=== PATIENT | female | born 1945 | race Caucasian/White ===

== ENCOUNTER 2024-03-02 12:18 | Inpatient (IN) ==
--- NOTE | 2024-03-02 12:58 | Emergency Department Note ---
Impression & Plan Weakness, Acute hyperglycemia, Acute UTI, Acute dehydration, Elevated lactic acid level, Hypomagnesemia ED Provider Note NAME: RENU ABLERT AGE: 78 SEX: F : 1945 ARRIVES VIA: Walk-In INFORMANT: [Patient][family] ED PROVIDER(S): [Walter Fisher MD] CHIEF COMPLAINT: Hyperglycemia HISTORY OF PRESENT ILLNESS: The patient is a 78-year-old female who states that 3 days ago, she noticed some blood in her urine, some burning to urinate and some urinary frequency. 2 days ago, she went to her doctor's office and was diagnosed with a UTI. She was placed on Macrobid. Patient states that the burning has improved with urination. Today, her sugar was high and read high on her monitor. She was shaky and weak and tired and she felt like her sugars might be up. She had ketones in her urine. She presents for evaluation. She did take some insulin prior to arrival. There has been no cough or congestion. She has been somewhat nauseated but there has been no vomiting. PMHx/PSHx/Social Hx: See Below PHYSICAL EXAM: GENERAL: Patient is in no acute distress. HEENT: No acute trauma, normocephalic atraumatic, mucous membranes moist, no nasal congestion. Neck: No adenopathy, trachea midline, no stridor. Lungs: Clear to auscultation bilaterally when listening anterior, no wheezing or rhonchi, no respiratory distress. Heart: Regular rate and rhythm, no murmurs. Abdomen: Somewhat obese, mildly diffusely tender, no distention. Soft. NEUROLOGIC: Oriented x 3, no acute motor or sensory deficits, no focal weakness. SKIN: No jaundice, no diaphoresis. DIFFERENTIAL DIAGNOSIS: Sepsis or bacteremia, UTI, dehydration, electrolyte imbalance, medication reaction, among others. EMERGENCY DEPARTMENT PROCEDURES: MEDICAL DECISION MAKING: There is no leukocytosis or concerning anemia. There is a normal platelet count. VBG does not show findings of acidosis--DKA is thus unlikely. No renal failure. Magnesium is low at 1.5. Sugar was high at the mid 300s. Lactic acid level was elevated at over 5, this lactic elevation could be secondary to infection or possibly just dehydration and her hyperglycemia. There was no concerning liver enzyme elevation. Patient appeared to be in a euthyroid state. ECG showed a sinus rhythm, no dysrhythmia or ST elevation. Cardiac enzyme testing x 1 was not consistent with acute cardiac injury. Urinalysis showed 4+ ketones consistent with dehydration, no infection. Chest x-ray showed some potential atelectasis at the left base, no heart failure. On exam, the patient was sleepy and seemed dehydrated. She was not toxic or febrile. She was not hypotensive. The patient received 2 L of IV saline. This would qualify as over 30 cc/kg for sepsis protocol based on her ideal body weight. She received IV ceftriaxone as antibiotic therapy. She received IV insulin for the hyperglycemia, she was given IV magnesium. She received IV Zofran. The patient has been aggressively managed given her findings. Her lactic acidosis is already starting to clear. The value is now in the range of 3. Given the dehydration, given the large amount of ketones in the urine, given her fatigue, the recent UTI and now the lactic acidosis, I do think hospitalization would be warranted. I spoke with the patient and case management, the on-call hospitalist was consulted. I doubt the patient is truly septic. I suspect her lactic acid elevation is actually from her dehydration and hyperglycemia. Prior/Outside records/notes reviewed: None ECG per my interpretation: Indication was possible sepsis. The ECG shows a normal sinus rhythm with a rate of 91. There is no acute ST elevation, no PVCs. The QTc was 430. There was some poor R wave progression. Continuous Cardiac Monitoring per my interpretation: An order was placed for continuous cardiac monitoring. The monitor shows a rate of 97 with normal sinus rhythm. Imaging/x-ray results per my interpretation: Chest x-ray shows potential congestion versus atelectasis at the left base, no CHF. Chronic Medical/Social conditions affecting care: Advanced age. Care/Management discussed with: Case management, the on-call hospitalist. Level of care consideration(s): After review of the information above and other included data: --I believe the patient requires escalation of care to admission Critical Care Note: I have personally spent 39 minutes of critical care time in the direct management of this patient. This includes bedside care, interpretation of diagnostic studies, and testing, discussion with consultants, patient, and family members, and other required patient management activities. This 39 minutes is in excess of all separately billable procedures. DISPOSITION: Admission Past Med/Surg History Problem List (Updated 03/02/24 @ 17:36 by Walter Fisher MD) Hypomagnesemia (Acute) Elevated lactic acid level (Acute) Acute dehydration (Acute) Acute UTI (Acute) Acute hyperglycemia (Acute) Weakness (Acute) UTI (urinary tract infection) Back pain Urinary incontinence Vitamin B12 deficiency Vitamin D deficiency EKG abnormalities Left knee pain Strain of peroneal tendon of right foot Gait difficulty Health care maintenance Dyslipidemia Hypertension Hypothyroidism Uncontrolled type 2 diabetes mellitus, with long-term current use of insulin Medical History Heart rate fast Right ankle sprain Hyperlipidemia Acquired hypothyroidism Benign hypertension Uncontrolled type 2 diabetes mellitus with hyperglycemia Surgical History History of appendectomy Family History Mother Breast cancer Denies family history of Ovarian cancer Prostate cancer Myocardial infarction Colorectal cancer Social History Smoking Status: Never smoker Hx Alcohol Use: No Hx Substance Use: No Preferred Language: Norwegian Visual Impairment: No Limitations Hearing Ability: Normal marital status: / Current Living Situation Comment: lives with daughter and her spouse current occupational status: retired Feels Safe at Home: Yes Dental Care, Regularly: No Physical Activity Frequency: Does not Exercise Seatbelt Use: always Allergies Allergies Allergy/AdvReac Type Severity Reaction Status Date / Time No Known Allergies Allergy Verified 03/02/24 14:58 Home Meds Home Medications Medication Instructions Recorded Confirmed lancets 33 gauge (BD Ultra Fine #100 ea 08/26/20 02/21/24 Lancets) vitamin B complex 1 cap PO DAILY 08/26/20 03/02/24 potassium gluconate 600 mg (99 mg) 600 mg PO DAILY 09/10/20 03/02/24 tablet cinnamon bark 500 mg capsule 500 mg PO DAILY 02/05/21 03/02/24 (Cinnamon) droogpcc-iph-xklbr acid 0.4 1 tab PO DAILY 02/05/21 03/02/24 mg-lycopene 300 mcg-lutein 250 mcg tablet (Centrum Silver) blood sugar diagnostic (ReliOn #10 ea 03/09/21 02/21/24 Prime Test Strips) flash glucose scanning reader 07/07/21 02/21/24 (FreeStyle Kitty 2 [place]) echinacea 500 mg capsule 500 mg PO DAILY 10/12/22 03/02/24 insulin lispro 100 unit/mL See Rx Instructions .Route .COMPLEX 03/02/24 03/02/24 subcutaneous pen (Humalog KwikPen (U-100) Insulin) metformin 500 mg tablet,extended 500 mg PO BID 03/02/24 03/02/24 release 24 hr Previous Rx's Medication Instructions Recorded aspirin 81 mg chewable tablet 81 mg PO DAILY #30 tabs 05/04/21 cholecalciferol (vitamin D3) 50 50 mcg PO DAILY #90 caps 11/18/22 mcg (2,000 unit) capsule flash glucose sensor (FreeStyle #6 ea 12/09/22 Kitty 2 Sensor kit) pen needle, diabetic 32 gauge x #400 ea 02/28/23" (BD Geraldine 2nd Gen Pen Needle) lisinopril 20 1 tab PO DAILY #90 tabs 04/21/23 mg-hydrochlorothiazide 25 mg tablet insulin glargine 100 unit/mL (3 17 unit (0.17 mL) subcut QAM 90 09/11/23 mL) subcutaneous pen (Basaglar days #15.3 mL KwikPen U-100 Insulin) oxybutynin chloride 5 mg tablet 2.5 mg (1/2 x 5 mg) PO DAILY #15 11/30/23 tabs atorvastatin 40 mg tablet (Lipitor) 40 mg PO QPM #90 tabs 01/02/24 levothyroxine 125 mcg tablet 125 mcg PO DAILY #90 tabs 01/24/24 nitrofurantoin 100 mg PO BID 5 days #10 caps 02/29/24 monohydrate/macrocrystals 100 mg capsule (Macrobid) Results & Data (ED) Vital Signs Vital Signs - 24 hr 03/02/24 12:21 03/02/24 13:33 03/02/24 14:03 Temperature 36.3 C L Temperature Source Temporal Artery Scan Pulse Rate 97 H 88 83 Pulse Rhythm Regular Pulse Strength Normal Respiratory Rate 18 14 Respiratory Effort / Characteristics Non-Labored Respiratory Depth Normal Blood Pressure 148/92 H 127/73 Blood Pressure Mean 110 91 Blood Pressure Position Sitting Pulse Oximetry 94 97 Oxygen Delivery Method Room Air Room Air Sepsis Recent Fever Within 48 Hours No Sepsis New/Unexplained Change in Mental Status N/A Sepsis Action Taken by Nursing No Action Required 03/02/24 14:30 Temperature Temperature Source Pulse Rate 83 Pulse Rhythm Pulse Strength Respiratory Rate 16 Respiratory Effort / Characteristics Respiratory Depth Blood Pressure 115/70 Blood Pressure Mean 85 Blood Pressure Position Pulse Oximetry 98 Oxygen Delivery Method Room Air Sepsis Recent Fever Within 48 Hours Sepsis New/Unexplained Change in Mental Status Sepsis Action Taken by Group Home Medications Current Medication List: was personally reviewed by me Laboratory Data Attestation: I reviewed the patient's lab results. 03/02/24 12:35 03/02/24 12:35 Lab Results 03/02/24 03/02/24 03/02/24 Range/Units 12:24 12:35 13:05 WBC 10.51 (4.8-10.8) K/ul RBC 4.58 (4.20-5.40) M/uL Hgb 13.9 (12.0-16.0) g/dl Hct 40.9 (37.0-47.0) % MCV 89.3 (80.0-100.0) fL MCH 30.3 (25.0-34.0) pg MCHC 34.0 (32.0-36.0) g/dL RDW Std Deviation 44.3 (36.4-46.3) fL RDW Coeff of Isaac 13.6 (11.5-14.5) % Plt Count 282 (130-400) K/uL MPV 8.7 L (9.4-12.4) fL Immature Gran % (Auto) 0.5 % Neut % (Auto) 80.3 % Lymph % (Auto) 12.6 % [place] % (Auto) 4.9 % Eos % (Auto) 1.0 % Baso % (Auto) 0.7 % Neut # (Auto) 8.46 H (1.40-6.50) K/uL Lymph # (Auto) 1.32 (1.20-3.40) K/uL [place] # (Auto) 0.51 (0.11-0.59) K/uL Eos # (Auto) 0.10 (0.00-0.50) K/uL Baso # (Auto) 0.07 (0.00-0.20) K/uL Immature Gran # (Auto) 0.05 (0.01-0.20) K/uL VBG pH (7.36-7.41) VBG pCO2 (38-50) mmHg VBG pO2 mmHg VBG HCO3 mmol/L VBG O2 Saturation % VBG Base Excess mEq/L Sodium 134 L (136-145) mmol/L Potassium 3.7 (3.5-5.1) mmol/L Chloride 99 (98-107) mmol/L Carbon Dioxide 21 (21-32) mmol/L Anion Gap 14 H (3-11) BUN 25 H (6-23) mg/dl Creatinine 0.90 (0.6-1.2) mg/dl Est Cr Clr Drug Dosing Not Reportable Est GFR ( Amer) 71.0 ml/min Est GFR (Non-Af Amer) 61.2 ml/min BUN/Creatinine Ratio 27.8 H (10-20) Glucose 384 H* (70-99(Fasting)) mg/dl POC Glucose 363 H* (70-99) mg/dl Lactate (0.4-2.0) mmol/L Calcium 9.8 (8.6-10.3) mg/dl Magnesium 1.5 L (1.7-2.4) mg/dl Total Bilirubin 1.0 (0.2-1.0) mg/dl AST 22 (13-39) U/L ALT 22 (7-52) U/L Alkaline Phosphatase 85 (34-104) U/L Troponin I High Sens 4.9 (0-14) pg/ml Total Protein 6.9 (6.0-8.3) gm/dl Albumin 4.0 (3.4-5.0) gm/dl Globulin 2.9 (2.5-4.0) gm/dl Albumin/Globulin Ratio 1.4 (0.9-2) Triglycerides 102 (0-150) mg/dl Cholesterol 147 (0-200) mg/dl LDL Cholesterol, Calc 66 mg/dl VLDL Cholesterol, Calc 20 (0-30) mg/dl HDL Cholesterol 61 mg/dl Cholesterol/HDL Ratio 2.4 (0-5) Vitamin B12 (180-914) pg/ml TSH 0.310 (0.300-4.500) uIu/ml Urine Color Yellow Urine Appearance Clear (Clear) Urine pH 5.0 (4.5-7.5) Ur Specific [place] 1.026 (1.000-1.030) Urine Protein Negative (Negative) Urine Glucose (UA) 3+ H (Negative) Urine Ketones 4+ H (Negative) Urine Blood Negative (Negative) Urine Nitrite Negative (Negative) Urine Bilirubin Negative (Negative) Urine Urobilinogen Negative (Negative) Ur Leukocyte Esterase Negative (Negative) 03/02/24 03/02/24 03/02/24 Range/Units 13:15 13:24 15:17 WBC (4.8-10.8) K/ul RBC (4.20-5.40) M/uL Hgb (12.0-16.0) g/dl Hct (37.0-47.0) % MCV (80.0-100.0) fL MCH (25.0-34.0) pg MCHC (32.0-36.0) g/dL RDW Std Deviation (36.4-46.3) fL RDW Coeff of Isaac (11.5-14.5) % Plt Count (130-400) K/uL MPV (9.4-12.4) fL Immature Gran % (Auto) % Neut % (Auto) % Lymph % (Auto) % [place] % (Auto) % Eos % (Auto) % Baso % (Auto) % Neut # (Auto) (1.40-6.50) K/uL Lymph # (Auto) (1.20-3.40) K/uL [place] # (Auto) (0.11-0.59) K/uL Eos # (Auto) (0.00-0.50) K/uL Baso # (Auto) (0.00-0.20) K/uL Immature Gran # (Auto) (0.01-0.20) K/uL VBG pH 7.44 H (7.36-7.41) VBG pCO2 33 L (38-50) mmHg VBG pO2 53 mmHg VBG HCO3 22 mmol/L VBG O2 Saturation 88.0 % VBG Base Excess -1.1 mEq/L Sodium (136-145) mmol/L Potassium (3.5-5.1) mmol/L Chloride (98-107) mmol/L Carbon Dioxide (21-32) mmol/L Anion Gap (3-11) BUN (6-23) mg/dl Creatinine (0.6-1.2) mg/dl Est Cr Clr Drug Dosing Est GFR ( Amer) ml/min Est GFR (Non-Af Amer) ml/min BUN/Creatinine Ratio (10-20) Glucose (70-99(Fasting)) mg/dl POC Glucose (70-99) mg/dl Lactate 5.4 H* 3.4 H* (0.4-2.0) mmol/L Calcium (8.6-10.3) mg/dl Magnesium (1.7-2.4) mg/dl Total Bilirubin (0.2-1.0) mg/dl AST (13-39) U/L ALT (7-52) U/L Alkaline Phosphatase (34-104) U/L Troponin I High Sens (0-14) pg/ml Total Protein (6.0-8.3) gm/dl Albumin (3.4-5.0) gm/dl Globulin (2.5-4.0) gm/dl Albumin/Globulin Ratio (0.9-2) Triglycerides (0-150) mg/dl Cholesterol (0-200) mg/dl LDL Cholesterol, Calc mg/dl VLDL Cholesterol, Calc (0-30) mg/dl HDL Cholesterol mg/dl Cholesterol/HDL Ratio (0-5) Vitamin B12 416 (180-914) pg/ml TSH (0.300-4.500) uIu/ml Urine Color Urine Appearance (Clear) Urine pH (4.5-7.5) Ur Specific [place] (1.000-1.030) Urine Protein (Negative) Urine Glucose (UA) (Negative) Urine Ketones (Negative) Urine Blood (Negative) Urine Nitrite (Negative) Urine Bilirubin (Negative) Urine Urobilinogen (Negative) Ur Leukocyte Esterase (Negative) Administered Medications Sodium Chloride (Nss) 1,000 mls @ 75 mls/hr IV .[id number] DARIO Stop: 04/01/24 14:59 Last Admin: 03/02/24 16:19 Dose: 75 mls/hr Documented By: NDW Meclizine HCl (Meclizine 12.5 Mg Tab) 12.5 mg PO Q8 PRN PRN Reason: dizzy Stop: 04/01/24 15:36 Last Admin: 03/02/24 16:18 Dose: 12.5 mg Documented By: NDW Discontinued Medications Sodium Chloride (Nss) 1,000 mls @ 999 mls/hr IV .Q1H1M DARIO Stop: 03/02/24 13:45 Last Infusion: 03/02/24 14:40 Dose: Infused Documented By: Admin: 03/02/24 13:26 Dose: 999 mls/hr Documented By: JAYSON Magnesium Sulfate/Dextrose (Magnesium Sulfate / D5w) 1 gm in 100 mls @ 100 mls/hr IV NOW STA Stop: 03/02/24 14:22 Last Infusion: 03/02/24 14:31 Dose: Infused Documented By: Admin: 03/02/24 13:31 Dose: 100 mls/hr Documented By: SHERLY Sodium Chloride (Nss) 1,000 mls @ 999 mls/hr IV .Q1H1M ONE Stop: 03/02/24 14:47 Last Infusion: 03/02/24 16:23 Dose: Infused Documented By: Admin: 03/02/24 14:14 Dose: 999 mls/hr Documented By: JAYSON Ceftriaxone Sodium (Rocephin) 2,000 mg in 50 mls @ 100 mls/hr IV NOW STA Stop: 03/02/24 14:54 Last Admin: 03/02/24 15:07 Dose: 100 mls/hr Documented By: SHERLY Insulin Human Regular (Novolin-R Insulin Per Unit Charge) 10 units IV NOW STA Stop: 03/02/24 13:23 Last Admin: 03/02/24 13:31 Dose: 10 units Documented By: SHERLY Co-signed By: JAYSON Ondansetron HCl (Ondansetron Inj 2 Mg/Ml 2 Ml Vial) 4 mg IV NOW STA Stop: 03/02/24 12:44 Last Admin: 03/02/24 13:26 Dose: 4 mg Documented By: JAYSON Imaging Data Radiologist's Impression: Chest X-Ray 03/02/24 12:43 XR chest 1V portable CLINICAL HISTORY: weakness COMPARISON STUDY: No previous studies for comparison. FINDINGS: Lung volumes are normal. Hazy opacity along the left heart border likely reflects epicardial fat pad. There is no pneumothorax or pleural effusion. Cardiac size is normal. Mediastinal contours are normal. There is no evidence for pulmonary edema. IMPRESSION: No acute cardiopulmonary findings. ACT 112: Negative or not required by law. Electronically signed by: Umer Mancini M.D. 03/02/2024 1:[address] 03/02/24 15:37 CT OF THE HEAD WITHOUT CONTRAST CLINICAL HISTORY: dizzy COMPARISON STUDY: No previous studies for comparison. TECHNIQUE: Helical axial images of the head were obtained without IV contrast. Automated exposure control was utilized for the study. A dose lowering technique was utilized adhering to the principles of ALARA. FINDINGS: No acute intracranial hemorrhage, midline shift or mass effect is present. White matter hypodensity suggests small vessel disease. The ventricular system is unremarkable. The basal cisterns are patent. No extra-axial collections are present. There are no findings to suggest acute dural sinus thrombosis or acute territorial infarct. No significant calvarial abnormalities are present. Visualized portions of the sinuses and mastoid air cells are clear. IMPRESSION: No acute intracranial findings. ACT 112: Negative or not required by law. Electronically signed by: Umer Mancini M.D. 03/02/2024 4:08 PM Abdomen/Pelvis CT 03/02/24 15:49 CT OF THE ABDOMEN AND PELVIS WITHOUT CONTRAST CLINICAL HISTORY: Abdominal pain. COMPARISON STUDY: No previous studies for comparison. TECHNIQUE: Axial images of the abdomen and pelvis were obtained without IV contrast. Images were reviewed in the axial, sagittal, and coronal planes. Automated exposure control was utilized for the study. A dose lowering technique was utilized adhering to the principles of ALARA. FINDINGS: Lung bases are unremarkable. No pneumatosis, free air or portal venous gas is present. There are no renal, ureteral or bladder calculi. There is no hydronephrosis. Evaluation of the remainder of the abdomen and pelvis is suboptimal on this unenhanced exam. Liver, spleen, adrenal glands and pancreas are unremarkable. There are small gallstones within the gallbladder. There is no evidence for acute cholecystitis. There is no lymphadenopathy. There is sigmoid diverticulosis without evidence evidence for acute diverticular disease. There is mild stranding adjacent to the uterus and left adnexa. This finding is nonspecific. No fluid collections are identified. No bowel wall thickening is evident on unenhanced exam. The appendix is not visualized. There is no right lower quadrant inflammation. Pelvic calcifications represent phleboliths. IMPRESSION: 1. No urinary calculi or hydronephrosis. 2. Mild stranding adjacent to the uterus and left adnexa. The etiology and clinical significance of this finding is uncertain. This may reflect a gynecologic etiology. Colitis/diverticulitis is within the differential but considered less likely. No bowel wall thickening identified. 3. Sigmoid diverticulosis. No definite evidence for acute diverticulitis. 4. Cholelithiasis. ACT 112: Negative or not required by law. Electronically signed by: Umer Mancini M.D. 03/02/2024 4:29 PM Discharge Plan Visit Data Chief Complaint: Hyperglycemia Stated Complaint: UTI, VERTIGO, NAUSEAS, HIGH SUGAR ED Provider: Walter Fisher Discharge Problem: Weakness, Acute hyperglycemia, Acute UTI, Acute dehydration, Elevated lactic acid level, Hypomagnesemia Patient Disposition: Admitted As Inpatient Condition: Fair Discharge Instructions Krames/Other Patient Handouts: High Blood Sugar (Hyperglycemia), Managing Type 2 Diabetes Forms Stand Alone Forms: XOR.MOTORS Prescriptions Prescriptions: No Action cholecalciferol (vitamin D3) 50 mcg (2,000 unit) capsule 50 mcg PO DAILY Qty: 90 3RF Rx Instructions: with heaviest meal of the day (DME) FreeStyle Kitty 2 Sensor Kit See Rx Instructions .Route Qty: 6 1RF Rx Instructions: change every 14 days (DME) pen needle, diabetic [BD Geraldine 2nd Gen Pen Needle] 32 gauge x 5/32" needle See Rx Instructions .ROUTE .MEDSUPPLY Qty: 400 3RF Rx Instructions: use 4 needles daily lisinopril-hydrochlorothiazide 20-25 mg tablet 1 tab PO DAILY Qty: 90 3RF insulin glargine [Basaglar KwikPen U-100 Insulin] 100 unit/mL (3 mL) insulin pen 17 unit subcut QAM 90 Days Qty: 15.3 3RF oxybutynin chloride 5 mg tablet 2.5 mg PO DAILY Qty: 15 1RF Rx Instructions: PER PT'S DAUGHTER "DON'T TAKE EVERY DAY, ONLY WHEN NEEDED". Take half tab daily atorvastatin [Lipitor] 40 mg tablet 40 mg PO QPM Qty: 90 1RF levothyroxine 125 mcg tablet 125 mcg PO DAILY Qty: 90 3RF (DME) ReliOn Prime Test Strips Strip See Rx Instructions .ROUTE .MEDSUPPLY Qty: 10 Rx Instructions: As directed aspirin 81 mg tablet,chewable 81 mg PO DAILY Qty: 30 2RF (DME) FreeStyle Kitty 2 [place] Misc See Rx Instructions .Route Rx Instructions: As directed potassium gluconate 600 mg (99 mg) tablet 600 mg PO DAILY echinacea 500 mg capsule 500 mg PO DAILY Rx Instructions: administer with meals vitamin B complex Capsule 1 cap PO DAILY (DME) lancets [BD Ultra Fine Lancets] 33 gauge misc See Rx Instructions .ROUTE .MEDSUPPLY Qty: 100 Rx Instructions: As directed nitrofurantoin monohyd/m-cryst [Macrobid] 100 mg capsule 100 mg PO BID 5 Days Qty: 10 0RF Rx Instructions: STARTED 02/29/24 FOR 5 DAYS. must administer with a meal/food cinnamon bark [Cinnamon] 500 mg Capsule 500 mg PO DAILY Centrum Silver 0.4-300-250 mg-mcg-mcg Tablet 1 tab PO DAILY metformin 500 mg tablet extended release 24 hr 500 mg PO BID insulin lispro [Humalog KwikPen Insulin] 100 unit/mL insulin pen See Rx Instructions .ROUTE .COMPLEX Rx Instructions: TAKES 14 UNITS W/BREAKFAST, 8 UNITS W/LUNCH, & 7 UNITS W/SUPPER Referrals Referrals: Elana Esposito MD [Primary Care Provider] -
[2024-03-02 13:14] LABS: Basophils # (auto) 0.07 K/uL (0.00-0.20); Basophils % (auto) 0.7 %; Hematocrit (blood only) 40.9 % (37.0-47.0); Hemoglobin 13.9 g/dl (12.0-16.0); Immature Granulocytes # (auto) 0.05 K/uL (0.01-0.20); Immature Granulocytes % (auto) 0.5 %; Lymphocytes # (auto) 1.32 K/uL (1.20-3.40); Lymphocytes % (auto) 12.6 %; Mean Corpuscular Hemoglobin 30.3 pg (25.0-34.0); Mean Corpuscular Volume 89.3 fL (80.0-100.0); Mean Platelet Volume 8.7 fL (9.4-12.4); Monocytes # (auto) 0.51 K/uL (0.11-0.59); Monocytes % (auto) 4.9 %; Neutrophils # (auto) 8.46 K/uL (1.40-6.50); Neutrophils % (auto) 80.3 %; Platelet Count 282 K/uL (130-400); RDW Coefficient of Variation 13.6 % (11.5-14.5); RDW Standard Deviation 44.3 fL (36.4-46.3); Red Blood Count 4.58 M/uL (4.20-5.40); White Blood Count 10.51 K/ul (4.8-10.8)
--- NOTE | 2024-03-02 13:15 | XRay Report ---
XR chest 1V portable CLINICAL HISTORY: weakness COMPARISON STUDY: No previous studies for comparison. FINDINGS: Lung volumes are normal. Hazy opacity along the left heart border likely reflects epicardia l fat pad. There is no pneumothorax or pleural effusion. Cardiac size is normal. Mediastinal contours are normal. There is no evidence for pulmonary edema. IMPRESSION: No acute cardiopulmonary findings. ACT 112: Negative or not required by law. Electronically signed by: Umer Mancini M.D. 03/02/2024 1:14 PM
[2024-03-02 13:21] LABS: Alanine Aminotransferase 22 U/L (7-52); Albumin Globulin Ratio 1.4 (0.9-2); Alkaline Phosphatase 85 U/L (34-104); Anion Gap 14 (3-11); Aspartate Aminotransferase 22 U/L (13-39); BUN Creatinine Ratio 27.8 (10-20); Blood Urea Nitrogen 25 mg/dl (6-23); Calcium 9.8 mg/dl (8.6-10.3); Carbon Dioxide 21 mmol/L (21-32); Chloride 99 mmol/L (98-107); Est GFR (Non-African American) 61.2 ml/min; Globulin 2.9 gm/dl (2.5-4.0); Glucose 384 mg/dl (70-99(Fasting)); Magnesium 1.5 mg/dl (1.7-2.4); Potassium 3.7 mmol/L (3.5-5.1); Sodium 134 mmol/L (136-145); Total Protein 6.9 gm/dl (6.0-8.3); Troponin I High Sensitivity 4.9 pg/ml (0-14)
[2024-03-02] MEDS: SODIUM CHLORIDE 0.9% 1,000 ML IV SCH ×2 (13:26→16:19)
[2024-03-02] MEDS: ONDANSETRON INJ 2 MG/ML 2 ML VIAL IV STA (13:26)
[2024-03-02] MEDS: MAGNESIUM SULFATE / D5W 1 GM/100 ML BAG IV STA (13:31)
[2024-03-02] MEDS: NovoLIN-R INSULIN PER UNIT CHARGE IV STA (13:31)
[2024-03-02 13:42] LABS: Appearance Urine Clear (Clear); Bilirubin Urine Negative (Negative); Blood Urine Negative (Negative); Color Urine Yellow; Glucose Urine UA 3+ (Negative); Ketones Urine 4+ (Negative); Leukocyte Esterase Urine Negative (Negative); Nitrite Urine Negative (Negative); Protein Urine Negative (Negative); Specific Gravity Urine 1.026 (1.000-1.030); Urobilinogen Urine Negative (Negative)
[2024-03-02 14:02] LABS: Base Excess VBG -1.1 mEq/L; HCO3 VBG 22 mmol/L; PCO2 VBG 33 mmHg (38-50); PO2 VBG 53 mmHg; pH VBG 7.44 (7.36-7.41)
[2024-03-02] MEDS: SODIUM CHLORIDE 0.9% 1,000 ML IV ONE (14:14)
[2024-03-02] MEDS ORDERED: GLUCOSE 40% GEL 15 GM TUBE PO PRN (14:45)
[2024-03-02] MEDS ORDERED: GLUCOSE 10 TAB/TUBE PO PRN (14:45)
[2024-03-02] MEDS ORDERED: ALUMINUM/MAGNESIUM SUSP 30 ML UDC PO PRN (14:45)
[2024-03-02] MEDS ORDERED: ONDANSETRON INJ 2 MG/ML 2 ML VIAL IV PRN (14:45)
[2024-03-02] MEDS ORDERED: POLYETHYLENE (MIRALAX) 17 GM PACK PO PRN (14:45)
[2024-03-02] MEDS ORDERED: MAGNESIUM HYDROXIDE SUSP 30 ML UDC PO PRN (14:45)
[2024-03-02] MEDS ORDERED: GLUCAGON FOR INJ 1 MG VIAL SQ PRN (14:45)
[2024-03-02] MEDS ORDERED: ACETAMINOPHEN 325 MG TAB PO PRN (14:45)
[2024-03-02] MEDS ORDERED: DEXTROSE 50% 50 ML SYRINGE IV PRN (14:45)
[2024-03-02] MEDS: cefTRIAXone SODIUM 2,000 MG/50 ML BAG IV STA (15:07)
--- NOTE | 2024-03-02 15:48 | History & Physical Report ---
Date of Service March 02, 2024 Assessment & Plan (1) UTI (urinary tract infection): Plan: Early sepsis with elevated lactate Urine analysis obtained, will send for urine culture Started on IV Rocephin IV fluids (2) Gait difficulty: Plan: Patient reports feeling dizzy, suspect dehydration, vertigo Obtain CT of the brain meclizine PRN (3) Dyslipidemia: Plan: Continue home medication (4) Hypertension: Plan: Blood pressure stable Continue home meds (5) Hypothyroidism: Plan: Obtain TSH Continue Synthroid (6) Uncontrolled type 2 diabetes mellitus, with long-term current use of insuli n: Plan: Blood continue insulin sliding scale Will increase her basal insulin to 15 units twice a day History of Present Illness Chief Complaint: nausea, dizziness Primary Care Provider: Elana Esposito MD 78-year-old female with history of diabetes mellitus type 2 , hypertension , dyslipidemia , hypothyroidism who states that 3 days ago, she noticed some blood in her urine, some burning to urinate and some urinary frequency. 2 days ago, she went to her doctor's office and was diagnosed with a UTI. She was placed on Macrobid. Patient states that the burning has improved with urination. Today, her sugar was high and read high on her monitor. She was shaky and weak and tired and she felt like her sugars might be up. She had ketones in her urine. She presents for evaluation. She did take some insulin prior to arrival. In ER her blood sugars are in 300, she was given IV fluid, IV insulin, IV ceftriaxone, her lactate elevated 3.4, she reports feeling nauseous, off balance, reports feeling very dizzy, denies any upper or lower extremity focal weakness, denies prior history of vertigo, denies prior history of stroke, denies abdominal pain, had diarrhea Allergies Allergy/AdvReac Type Severity Reaction Status Date / Time No Known Allergies Allergy Verified 03/02/24 14:58 Home Medications Medication Instructions Recorded Confirmed Type lancets 33 gauge (BD Ultra Fine #100 ea 08/26/20 02/21/24 History Lancets) vitamin B complex 1 cap PO DAILY 08/26/20 03/02/24 History potassium gluconate 600 mg (99 mg) 600 mg PO DAILY 09/10/20 03/02/24 History tablet cinnamon bark 500 mg capsule 500 mg PO DAILY 02/05/21 03/02/24 History (Cinnamon) [id number]-[id number] acid 0.4 1 tab PO DAILY 02/05/21 03/02/24 History mg-lycopene 300 mcg-lutein 250 mcg tablet (Centrum Silver) blood sugar diagnostic (ReliOn #10 ea 03/09/21 02/21/24 History Prime Test Strips) aspirin 81 mg chewable tablet 81 mg PO DAILY #30 tabs 05/04/21 03/02/24 Rx flash glucose scanning reader 07/07/21 02/21/24 History (FreeStyle Kitty 2 [place]) echinacea 500 mg capsule 500 mg PO DAILY 10/12/22 03/02/24 History cholecalciferol (vitamin D3) 50 50 mcg PO DAILY #90 caps 11/18/22 03/02/24 Rx mcg (2,000 unit) capsule flash glucose sensor (FreeStyle #6 ea 12/09/22 02/21/24 Rx Kitty 2 Sensor kit) pen needle, diabetic 32 gauge x #400 ea 02/28/23 02/21/24 Rx 5/32" (BD Geraldine 2nd Gen Pen Needle) lisinopril 20 1 tab PO DAILY #90 tabs 04/21/23 03/02/24 Rx mg-hydrochlorothiazide 25 mg tablet insulin glargine 100 unit/mL (3 17 unit (0.17 mL) subcut QAM 90 09/11/23 03/02/24 Rx mL) subcutaneous pen (Basaglar days #15.3 mL KwikPen U-100 Insulin) oxybutynin chloride 5 mg tablet 2.5 mg (1/2 x 5 mg) PO DAILY #15 11/30/23 03/02/24 Rx tabs atorvastatin 40 mg tablet (Lipitor) 40 mg PO QPM #90 tabs 01/02/24 03/02/24 Rx levothyroxine 125 mcg tablet 125 mcg PO DAILY #90 tabs 01/24/24 03/02/24 Rx nitrofurantoin 100 mg PO BID 5 days #10 caps 02/29/24 03/02/24 Rx monohydrate/macrocrystals 100 mg capsule (Macrobid) insulin lispro 100 unit/mL See Rx Instructions .Route .COMPLEX 03/02/24 03/02/24 History subcutaneous pen (Humalog KwikPen (U-100) Insulin) metformin 500 mg tablet,extended 500 mg PO BID 03/02/24 03/02/24 History release 24 hr Past Med/Surg History Problem List (Updated 03/02/24 @ 15:43 by Katerina De La Vega MD) UTI (urinary tract infection) Back pain Urinary incontinence Vitamin B12 deficiency Vitamin D deficiency EKG abnormalities Left knee pain Strain of peroneal tendon of right foot Gait difficulty Health care maintenance Dyslipidemia Hypertension Hypothyroidism Uncontrolled type 2 diabetes mellitus, with long-term current use of insulin Medical History Heart rate fast Right ankle sprain Hyperlipidemia Acquired hypothyroidism Benign hypertension Uncontrolled type 2 diabetes mellitus with hyperglycemia Surgical History History of appendectomy Family History Mother Breast cancer Denies family history of Ovarian cancer Prostate cancer Myocardial infarction Colorectal cancer Social History Smoking Status: Never smoker Hx Alcohol Use: No Hx Substance Use: No Preferred Language: Syriac Visual Impairment: No Limitations Hearing Ability: Normal marital status: / Current Living Situation Comment: lives with daughter and her spouse current occupational status: retired Feels Safe at Home: Yes Dental Care, Regularly: No Physical Activity Frequency: Does not Exercise Seatbelt Use: always Review of Systems Review of Systems: All systems reviewed & are unremarkable except as noted in Subjective Physical Exam Physical Exam: GENERAL: Patient is in no acute distress. HEENT: No acute trauma, normocephalic atraumatic, mucous membranes moist, no nasal congestion. Neck: No adenopathy, trachea midline, no stridor. Lungs: Clear to auscultation bilaterally when listening anterior, no wheezing or rhonchi, no respiratory distress. Heart: Regular rate and rhythm, no murmurs. Abdomen: Somewhat obese, mildly diffusely tender, no distention. Soft. NEUROLOGIC: Oriented x 3, no acute motor or sensory deficits, no focal weakness. SKIN: No jaundice, no diaphoresis. Results & Data Results & Data Vital Signs (Past 12 Hours) Vital Signs Temp Pulse Resp BP Pulse Ox O2 Del Method 03/02/24 14:30 83 16 115/70 98 Room Air 03/02/24 14:03 83 14 127/73 97 Room Air 03/02/24 13:33 88 03/02/24 12:21 36.3 C L 97 H 18 148/92 H 94 Room Air Code Status & VTE Plan Code Status full PG Care Time/CCT Total # of Minutes Spent Total Time Spent with Patient: Total time spent is greater than 50% in coordination of care (as documented) at patient's floor/unit and/or counseling patient: Coding Level of Care Code 42876 INT INP/OBS CARE 3/75MIN Diagnoses UTI (urinary tract infection) N39.0 Gait difficulty R26.9 Dyslipidemia E78.5 Hypertension I10 Hypothyroidism E03.9 Uncontrolled type 2 diabetes mellitus, with long-term current use of insulin E11.65; Z79.4
--- NOTE | 2024-03-02 16:09 | CT Scan Report ---
CT OF THE HEAD WITHOUT CONTRAST CLINICAL HISTORY: dizzy COMPARISON STUDY: No previous studies for comparison. TECHNIQUE: Helical axial images of the head were obtained without IV contrast. Automated exposure con trol was utilized for the study. A dose lowering technique was utilized adhering to the principles o f ALARA. FINDINGS: No acute intracranial hemorrhage, midline shift or mass effect is present. White matter hyp odensity suggests small vessel disease. The ventricular system is unremarkable. The basal cisterns ar e patent. No extra-axial collections are present. There are no findings to suggest acute dural sinus thrombosis or acute territorial infarct. No significant calvarial abnormalities are present. Visualiz ed portions of the sinuses and mastoid air cells are clear. IMPRESSION: No acute intracranial findings. ACT 112: Negative or not required by law. Electronically signed by: Umer Mancini M.D. 03/02/2024 4:08 PM
[2024-03-02] MEDS: MECLIZINE 12.5 MG TAB PO PRN (16:18)
[2024-03-02 16:20] LABS: Chol HDL Ratio 2.4 (0-5); Cholesterol 147 mg/dl (0-200); HDL Cholesterol 61 mg/dl; LDL Cholesterol Calculated 66 mg/dl; Triglycerides 102 mg/dl (0-150); VLDL Cholesterol 20 mg/dl (0-30)
--- NOTE | 2024-03-02 16:32 | CT Scan Report ---
CT OF THE ABDOMEN AND PELVIS WITHOUT CONTRAST CLINICAL HISTORY: Abdominal pain. COMPARISON STUDY: No previous studies for comparison. TECHNIQUE: Axial images of the abdomen and pelvis were obtained without IV contrast. Images were revi ewed in the axial, sagittal, and coronal planes. Automated exposure control was utilized for the marcos dy. A dose lowering technique was utilized adhering to the principles of ALARA. FINDINGS: Lung bases are unremarkable. No pneumatosis, free air or portal venous gas is present. Ther e are no renal, ureteral or bladder calculi. There is no hydronephrosis. Evaluation of the remainder of the abdomen and pelvis is suboptimal on this unenhanced exam. Liver, spleen, adrenal glands and pa ncreas are unremarkable. There are small gallstones within the gallbladder. There is no evidence for acute cholecystitis. There is no lymphadenopathy. There is sigmoid diverticulosis without evidence ev idence for acute diverticular disease. There is mild stranding adjacent to the uterus and left adnexa . This finding is nonspecific. No fluid collections are identified. No bowel wall thickening is evide nt on unenhanced exam. The appendix is not visualized. There is no right lower quadrant inflammation. Pelvic calcifications represent phleboliths. IMPRESSION: 1. No urinary calculi or hydronephrosis. 2. Mild stranding adjacent to the uterus and left adnexa. The etiology and clinical significance of t his finding is uncertain. This may reflect a gynecologic etiology. Colitis/diverticulitis is within t he differential but considered less likely. No bowel wall thickening identified. 3. Sigmoid diverticulosis. No definite evidence for acute diverticulitis. 4. Cholelithiasis. ACT 112: Negative or not required by law. Electronically signed by: Umer Mancini M.D. 03/02/2024 4:29 PM
[2024-03-02] MEDS: INSULIN ASPART PER UNIT CHARGE SC SCH (17:59)
--- NOTE | 2024-03-02 19:24 | Electrocardiogram Report ---
Test Reason : Blood Pressure : / mmHG Vent. Rate : 091 BPM Atrial Rate : 091 BPM P-R Int : 150 ms QRS Dur : 086 ms QT Int : 350 ms P-R-T Axes : 028 -36 026 degrees QTc Int : 430 ms Normal sinus rhythm Left axis deviation Poor R wave progression, consider anterior CA vs. lead placement vs. LVH Abnormal ECG No previous ECGs available Confirmed by Live Cottrell ([id number]) on 03/02/2024 7:24:22 PM Referred By: Confirmed By:Live Cottrell
[2024-03-02] MEDS: MAGNESIUM SULFATE / D5W 1 GM/100 ML BAG IV ONE (19:40)
[2024-03-02] MEDS: LANTUS PER UNIT CHARGE SQ SCH (21:19)
[2024-03-02] MEDS: ATORVASTATIN 40 MG TAB PO SCH (21:20)
[2024-03-03] MEDS: LEVOTHYROXINE SODIUM 125 MCG TABLET PO SCH (05:22)
[2024-03-03 07:13] LABS: Albumin Level 3.2 gm/dl (3.4-5.0); Bilirubin,Total 0.6 mg/dl (0.2-1.0); Calcium 8.2 mg/dl (8.6-10.3); Potassium 3.9 mmol/L (3.5-5.1)
[2024-03-03 07:22] LABS: Albumin Globulin Ratio 1.5 (0.9-2); BUN Creatinine Ratio 26.2 (10-20); Creatinine Clr Calc Pharmacy 74.3 ml/min; Est GFR (African American) 98.6 ml/min; Globulin 2.2 gm/dl (2.5-4.0); Total Protein 5.4 gm/dl (6.0-8.3)
[2024-03-03 07:37] LABS: Basophils # (auto) 0.04 K/uL (0.00-0.20); Basophils % (auto) 0.7 %; Eosinophils # (auto) 0.25 K/uL (0.00-0.50); Eosinophils % (auto) 4.5 %; Hematocrit (blood only) 33.7 % (37.0-47.0); Immature Granulocytes # (auto) 0.02 K/uL (0.01-0.20); Immature Granulocytes % (auto) 0.4 %; Lymphocytes # (auto) 1.65 K/uL (1.20-3.40); Mean Corpuscular Hemoglobin 29.6 pg (25.0-34.0); Mean Corpuscular Hgb Conc 32.6 g/dL (32.0-36.0); Mean Corpuscular Volume 90.6 fL (80.0-100.0); Mean Platelet Volume 8.6 fL (9.4-12.4); Monocytes % (auto) 10.9 %; Neutrophils # (auto) 2.94 K/uL (1.40-6.50); Neutrophils % (auto) 53.5 %; Platelet Count 244 K/uL (130-400); RDW Coefficient of Variation 13.8 % (11.5-14.5); RDW Standard Deviation 45.4 fL (36.4-46.3); Red Blood Count 3.72 M/uL (4.20-5.40)
[2024-03-03] MEDS: CHOLECALCIFEROL 25 MCG (1000 UNITS) TAB PO SCH (07:56)
[2024-03-03] MEDS: metFORMIN HCL ER 500 MG TABCR PO SCH (07:56)
[2024-03-03] MEDS: LISINOPRIL/HCTZ 20/25MG 1 TAB PO SCH (07:56)
[2024-03-03] MEDS: ASPIRIN 81 MG CHEW PO SCH (08:02)
[2024-03-03 08:26] LABS: Estimated Average Glucose 240 mg/dl
[2024-03-03] MEDS ORDERED: NON-FORMULARY MEDICATION (Insulin Lispro [Humalog Kwikpen Insulin] 100 unit/mL insulin pen SQ SCH (09:00)
--- NOTE | 2024-03-03 09:47 | Hospitalist Progress Note ---
Date of Service March 03, 2024 Assessment & Plan (1) UTI (urinary tract infection): Plan: Early sepsis with elevated lactate Urine analysis obtained I do not see new cultures sent out Started on IV Rocephin Discontinue IV fluids as sepsis has resolved. Lactic acid improved Blood pressure stable Patient is feeling better clinically (2) Gait difficulty: Plan: Patient reports feeling dizzy, suspect dehydration, vertigo CT negative meclizine PRN Consult PT and OT Dizziness has improved with hydration (3) Dyslipidemia: Plan: Continue home medication (4) Hypertension: Plan: Blood pressure stable Continue home meds (5) Hypothyroidism: Plan: Obtain TSH Continue Synthroid (6) Uncontrolled type 2 diabetes mellitus, with long-term current use of insulin: Plan: continue insulin sliding scale Continue increased dose of basal insulin to 15 units twice a day, from 17 units every morning Admission and Anticipated Discharge Date Admission Date: March 02, 2024 Subjective Patient says that she feels better overall. Denies chest pain or shortness of breath. Not feeling as dizzy anymore. Review of Systems Review of Systems: All systems reviewed & are unremarkable except as noted in Subjective Physical Exam Physical Exam: General: Awake, conversant Heart: S1, S2/regular rate and rhythm, no murmur rubs or gallops Lungs: Clear to auscultation bilaterally. Normal effort Abdomen: Soft/nontender/nondistended. No hepatosplenomegaly Extremities: No clubbing/cyanosis. No edema Behavior: Appropriate, cooperative Results & Data Results & Data Vital Signs (Past 12 Hours) Vital Signs Temp Pulse Resp BP Pulse Ox O2 Del Method 03/03/24 07:40 36.5 C 76 18 138/85 94 Room Air Laboratory Results Abnormal lab results 03/02/24 03/02/24 03/02/24 Range/Units 12:24 12:35 13:05 RBC (4.20-5.40) M/uL Hgb (12.0-16.0) g/dl Hct (37.0-47.0) % MPV 8.7 L (9.4-12.4) fL Neut # (Auto) 8.46 H (1.40-6.50) K/uL Hawkins # (Auto) (0.11-0.59) K/uL VBG pH (7.36-7.41) VBG pCO2 (38-50) mmHg Sodium 134 L (136-145) mmol/L Anion Gap 14 H (3-11) BUN 25 H (6-23) mg/dl BUN/Creatinine Ratio 27.8 H (10-20) Glucose 384 H* (70-99(Fasting)) mg/dl POC Glucose 363 H* (70-99) mg/dl Hemoglobin A1c (4.5-5.6) % Lactate (0.4-2.0) mmol/L Calcium (8.6-10.3) mg/dl Magnesium 1.5 L (1.7-2.4) mg/dl Total Protein (6.0-8.3) gm/dl Albumin (3.4-5.0) gm/dl Globulin (2.5-4.0) gm/dl Urine Glucose (UA) 3+ H (Negative) Urine Ketones 4+ H (Negative) 03/02/24 03/02/24 03/02/24 Range/Units 13:15 15:17 17:40 RBC (4.20-5.40) M/uL Hgb (12.0-16.0) g/dl Hct (37.0-47.0) % MPV (9.4-12.4) fL Neut # (Auto) (1.40-6.50) K/uL Hawkins # (Auto) (0.11-0.59) K/uL VBG pH 7.44 H (7.36-7.41) VBG pCO2 33 L (38-50) mmHg Sodium (136-145) mmol/L Anion Gap (3-11) BUN (6-23) mg/dl BUN/Creatinine Ratio (10-20) Glucose (70-99(Fasting)) mg/dl POC Glucose 123 H (70-99) mg/dl Hemoglobin A1c (4.5-5.6) % Lactate 5.4 H* 3.4 H* (0.4-2.0) mmol/L Calcium (8.6-10.3) mg/dl Magnesium (1.7-2.4) mg/dl Total Protein (6.0-8.3) gm/dl Albumin (3.4-5.0) gm/dl Globulin (2.5-4.0) gm/dl Urine Glucose (UA) (Negative) Urine Ketones (Negative) 03/02/24 03/03/24 03/03/24 Range/Units 21:01 00:55 05:21 RBC (4.20-5.40) M/uL Hgb (12.0-16.0) g/dl Hct (37.0-47.0) % MPV (9.4-12.4) fL Neut # (Auto) (1.40-6.50) K/uL Hawkins # (Auto) (0.11-0.59) K/uL VBG pH (7.36-7.41) VBG pCO2 (38-50) mmHg Sodium (136-145) mmol/L Anion Gap (3-11) BUN (6-23) mg/dl BUN/Creatinine Ratio (10-20) Glucose (70-99(Fasting)) mg/dl POC Glucose 292 H 134 H 195 H (70-99) mg/dl Hemoglobin A1c (4.5-5.6) % Lactate (0.4-2.0) mmol/L Calcium (8.6-10.3) mg/dl Magnesium (1.7-2.4) mg/dl Total Protein (6.0-8.3) gm/dl Albumin (3.4-5.0) gm/dl Globulin (2.5-4.0) gm/dl Urine Glucose (UA) (Negative) Urine Ketones (Negative) 03/03/24 03/03/24 Range/Units 06:32 07:39 RBC 3.72 L (4.20-5.40) M/uL Hgb 11.0 L D (12.0-16.0) g/dl Hct 33.7 L (37.0-47.0) % MPV 8.6 L (9.4-12.4) fL Neut # (Auto) (1.40-6.50) K/uL Hawkins # (Auto) 0.60 H (0.11-0.59) K/uL VBG pH (7.36-7.41) VBG pCO2 (38-50) mmHg Sodium (136-145) mmol/L Anion Gap (3-11) BUN (6-23) mg/dl BUN/Creatinine Ratio 26.2 H (10-20) Glucose 206 H (70-99(Fasting)) mg/dl POC Glucose 235 H (70-99) mg/dl Hemoglobin A1c 10.0 H (4.5-5.6) % Lactate (0.4-2.0) mmol/L Calcium 8.2 L (8.6-10.3) mg/dl Magnesium (1.7-2.4) mg/dl Total Protein 5.4 L D (6.0-8.3) gm/dl Albumin 3.2 L (3.4-5.0) gm/dl Globulin 2.2 L (2.5-4.0) gm/dl Urine Glucose (UA) (Negative) Urine Ketones (Negative) Diagnostic Findings Chest X-Ray 03/02/24 12:43 XR chest 1V portable CLINICAL HISTORY: weakness COMPARISON STUDY: No previous studies for comparison. FINDINGS: Lung volumes are normal. Hazy opacity along the left heart border likely reflects epicardial fat pad. There is no pneumothorax or pleural effusion. Cardiac size is normal. Mediastinal contours are normal. There is no evidence for pulmonary edema. IMPRESSION: No acute cardiopulmonary findings. ACT 112: Negative or not required by law. Electronically signed by: Umer Mancini M.D. 03/02/2024 1:[address] 03/02/24 15:37 CT OF THE HEAD WITHOUT CONTRAST CLINICAL HISTORY: dizzy COMPARISON STUDY: No previous studies for comparison. TECHNIQUE: Helical axial images of the head were obtained without IV contrast. Automated exposure control was utilized for the study. A dose lowering technique was utilized adhering to the principles of ALARA. FINDINGS: No acute intracranial hemorrhage, midline shift or mass effect is present. White matter hypodensity suggests small vessel disease. The ventricular system is unremarkable. The basal cisterns are patent. No extra-axial collections are present. There are no findings to suggest acute dural sinus thrombosis or acute territorial infarct. No significant calvarial abnormalities are present. Visualized portions of the sinuses and mastoid air cells are clear. IMPRESSION: No acute intracranial findings. ACT 112: Negative or not required by law. Electronically signed by: Umer Mancini M.D. 03/02/2024 4:08 PM Abdomen/Pelvis CT 03/02/24 15:49 CT OF THE ABDOMEN AND PELVIS WITHOUT CONTRAST CLINICAL HISTORY: Abdominal pain. COMPARISON STUDY: No previous studies for comparison. TECHNIQUE: Axial images of the abdomen and pelvis were obtained without IV contrast. Images were reviewed in the axial, sagittal, and coronal planes. Automated exposure control was utilized for the study. A dose lowering technique was utilized adhering to the principles of ALARA. FINDINGS: Lung bases are unremarkable. No pneumatosis, free air or portal venous gas is present. There are no renal, ureteral or bladder calculi. There is no hydronephrosis. Evaluation of the remainder of the abdomen and pelvis is suboptimal on this unenhanced exam. Liver, spleen, adrenal glands and pancreas are unremarkable. There are small gallstones within the gallbladder. There is no evidence for acute cholecystitis. There is no lymphadenopathy. There is sigmoid diverticulosis without evidence evidence for acute diverticular disease. There is mild stranding adjacent to the uterus and left adnexa. This finding is nonspecific. No fluid collections are identified. No bowel wall thickening is evident on unenhanced exam. The appendix is not visualized. There is no right lower quadrant inflammation. Pelvic calcifications represent phleboliths. IMPRESSION: 1. No urinary calculi or hydronephrosis. 2. Mild stranding adjacent to the uterus and left adnexa. The etiology and clinical significance of this finding is uncertain. This may reflect a gynecologic etiology. Colitis/diverticulitis is within the differential but considered less likely. No bowel wall thickening identified. 3. Sigmoid diverticulosis. No definite evidence for acute diverticulitis. 4. Cholelithiasis. ACT 112: Negative or not required by law. Electronically signed by: Umer Mancini M.D. 03/02/2024 4:29 PM PG Care Time/CCT Total # of Minutes Spent Total Time Spent with Patient: Total time spent is greater than 50% in coordination of care (as documented) at patient's floor/unit and/or counseling patient: Coding Level of Care Code 95915 SUB INP/OBS CARE 2/35MIN Diagnoses UTI (urinary tract infection) N39.0 Gait difficulty R26.9 Dyslipidemia E78.5 Hypertension I10 Hypothyroidism E03.9 Uncontrolled type 2 diabetes mellitus, with long-term current use of insulin E11.65; Z79.4
[2024-03-03] MEDS: cefTRIAXone SODIUM 1,000 MG/50 ML BAG IV SCH (15:46)
[2024-03-03] MEDS ORDERED: Nursing to Pharmacy Communication SCH (16:30)
[2024-03-03] MEDS: ATORVASTATIN 40 MG TAB PO SCH (17:33)
[2024-03-03] MEDS ORDERED: ATORVASTATIN 40 MG TAB PO SCH (21:00)
--- NOTE | 2024-03-04 16:20 | Hospitalist Progress Note ---
Date of Service March 04, 2024 Assessment & Plan (1) UTI (urinary tract infection): Plan: Early sepsis with elevated lactate Urine analysis obtained I do not see new cultures sent out Started on IV Rocephin Discontinue IV fluids as sepsis has resolved. Lactic acid improved Blood pressure stable Patient is feeling better clinically May discharge on p.o. cefdinir tomorrow (2) Gait difficulty: Plan: Patient reports feeling dizzy, suspect dehydration, vertigo CT negative meclizine PRN PT/OT on board Dizziness has improved with hydration (3) Dyslipidemia: Plan: Continue home medication (4) Hypertension: Plan: Blood pressure stable Continue home meds (5) Hypothyroidism: Plan: Obtain TSH Continue Synthroid (6) Uncontrolled type 2 diabetes mellitus, with long-term current use of insu breana: Plan: continue insulin sliding scale Continue increased dose of basal insulin to 15 units twice a day, from 17 units every morning Noted that her blood sugar was starting to dip down yesterday. Reduced her total basal insulin to 17 units every morning like her usual home dose. Will monitor overnight Plan Likely discharge tomorrow Full code DVT prophylaxis: Ambulate Admission and Anticipated Discharge Date Admission Date: March 02, 2024 Subjective Patient feels well overall. Denies chest pain or shortness of breath. Says that she worked well with physical therapy today. Review of Systems Review of Systems: All systems reviewed & are unremarkable except as noted in Subjective Physical Exam Physical Exam: General: Awake, conversant Heart: S1, S2/regular rate and rhythm, no murmur rubs or gallops Lungs: Clear to auscultation bilaterally. Normal effort Abdomen: Soft/nontender/nondistended. No hepatosplenomegaly Extremities: No clubbing/cyanosis. No edema Behavior: Appropriate, cooperative Results & Data Results & Data Vital Signs (Past 12 Hours) Vital Signs Temp Pulse Resp BP Pulse Ox O2 Del Method 03/04/24 14:35 36.5 C 74 18 155/82 H 94 Room Air 03/04/24 09:00 Room Air 03/04/24 07:03 36.4 C L 68 16 160/116 H 95 Room Air Laboratory Results Abnormal lab results 03/03/24 03/04/24 03/04/24 Range/Units 16:39 00:01 07:42 POC Glucose 117 H 126 H 145 H (70-99) mg/dl 03/04/24 Range/Units 11:47 POC Glucose 139 H (70-99) mg/dl PG Care Time/CCT Total # of Minutes Spent Total Time Spent with Patient: Total time spent is greater than 50% in coordination of care (as documented) at patient's floor/unit and/or counseling patient: Coding Level of Care Code 22890 SUB INP/OBS CARE 2/35MIN Diagnoses UTI (urinary tract infection) N39.0 Gait difficulty R26.9 Dyslipidemia E78.5 Hypertension I10 Hypothyroidism E03.9 Uncontrolled type 2 diabetes mellitus, with long-term current use of insulin E11.65; Z79.4
[2024-03-04] MEDS: CARBOHYDRATES FOR HYPOGLYCEMIA PO PRN (16:53)
[2024-03-05] MEDS: LANTUS PER UNIT CHARGE SQ SCH ×2 (08:23→08:33)
--- NOTE | 2024-03-05 11:10 | Discharge Summary ---
Date of Service March 05, 2024 Admission HPI Per Admitting Provider 78-year-old female with history of diabetes mellitus type 2 , hypertension , dyslipidemia , hypothyroidism who states that 3 days ago, she noticed some blood in her urine, some burning to urinate and some urinary frequency. 2 days ago, she went to her doctor's office and was diagnosed with a UTI. She was placed on Macrobid. Patient states that the burning has improved with urination. Today, her sugar was high and read high on her monitor. She was shaky and weak and tired and she felt like her sugars might be up. She had ketones in her urine. She presents for evaluation. She did take some insulin prior to arrival. In ER her blood sugars are in 300, she was given IV fluid, IV insulin, IV ceftriaxone, her lactate elevated 3.4, she reports feeling nauseous, off balance, reports feeling very dizzy, denies any upper or lower extremity focal weakness, denies prior history of vertigo, denies prior history of stroke, denies abdominal pain, had diarrhea Admission Exam Per Admitting Provider GENERAL: Patient is in no acute distress. HEENT: No acute trauma, normocephalic atraumatic, mucous membranes moist, no nasal congestion. Neck: No adenopathy, trachea midline, no stridor. Lungs: Clear to auscultation bilaterally when listening anterior, no wheezing or rhonchi, no respiratory distress. Heart: Regular rate and rhythm, no murmurs. Abdomen: Somewhat obese, mildly diffusely tender, no distention. Soft. NEUROLOGIC: Oriented x 3, no acute motor or sensory deficits, no focal weakness. SKIN: No jaundice, no diaphoresis. Principal Diagnosis * E. coli urinary tract infection * Generalized weakness * Brittle Diabetes Mellitus Discharge Exam General: Awake, conversant Heart: S1, S2/regular rate and rhythm, no murmur rubs or gallops Lungs: Clear to auscultation bilaterally. Normal effort Abdomen: Soft/nontender/nondistended. No hepatosplenomegaly Extremities: No clubbing/cyanosis. No edema Behavior: Appropriate, cooperative Discharge Data Allergies Allergy/AdvReac Type Severity Reaction Status Date / Time No Known Allergies Allergy Verified 03/02/24 14:58 Consultations 03/02/24 14:29 ED Decision to Admit Stat Ordered Studies 03/02/24 15:37 CT head/brain wo con Stat 03/02/24 15:49 CT Abdomen and Pelvis [CT abd pelvis wo con] Stat Hospital Course (1) UTI (urinary tract infection): Early sepsis with elevated lactate Urine analysis obtained I do not see new cultures sent out Treated with IV Rocephin, being discharged on p.o. cefdinir Discontinue IV fluids as sepsis has resolved. Lactic acid improved Blood pressure stable Patient is feeling better clinically (2) Gait difficulty: Patient reports feeling dizzy, suspect dehydration, vertigo CT negative meclizine PRN PT/OT on board Dizziness has improved with hydration (3) Dyslipidemia: Continue home medication (4) Hypertension: Blood pressure stable Continue home meds (5) Hypothyroidism: Obtain TSH Continue Synthroid (6) Uncontrolled type 2 diabetes mellitus, with long-term current use of insulin: continue insulin sliding scale Patient tells me that she has very brittle diabetes with her sugars being all over the place. She was hyperglycemic on admission Her insulin dose was increased during this hospital stay Overnight, she had issues with hypoglycemia She is very anxious to go home I decided to go down on her insulin from 17 units every morning home dose to 12 units every morning I made sure that she has an appointment with PCP or care aid within 1 week. She has been advised to keep a log of her fingerstick readings I personally spoke to the daughter and updated her about my concerns. Plan Likely discharge tomorrow Full code DVT prophylaxis: Ambulate Total Time Total Time Spent Total Time Spent (In Minutes): 35 Discharge Plan Discharge Items Patient Disposition: Home - Self-Care Reason For Visit: UTI Discharge Diagnosis: * Urinary tract infection * Generalized weakness * Brittle Diabetes Mellitus Condition on Discharge: Fair Activity: Resume your previous activity Non-emergency contact: Primary Care Provider Call non-emergency contact if: you have any medication questions and your symptoms worsen Follow-up/Referrals: Elana Esposito MD [Primary Care Provider] - 03/12/24 3:00 pm Diet: Carb Consistent or DM2 and Heart Healthy Addtl Attending Provider Instructions: Advised to follow-up with PCP in 1 week Advised to follow-up with care aid in 1 week Pending Studies at Discharge: No Stand-Alone Forms: [facility] Medications and DC Order Prescriptions: New cefdinir 300 mg capsule 300 mg PO BID 5 Days Qty: 10 0RF Continued cholecalciferol (vitamin D3) 50 mcg (2,000 unit) capsule 50 mcg PO DAILY Qty: 90 3RF Rx Instructions: with heaviest meal of the day (DME) FreeStyle Kitty 2 Sensor Kit See Rx Instructions .Route Qty: 6 1RF Rx Instructions: change every 14 days (DME) pen needle, diabetic [BD Geraldine 2nd Gen Pen Needle] 32 gauge x 5/32" needle See Rx Instructions .ROUTE .MEDSUPPLY Qty: 400 3RF Rx Instructions: use 4 needles daily lisinopril-hydrochlorothiazide 20-25 mg tablet 1 tab PO DAILY Qty: 90 3RF oxybutynin chloride 5 mg tablet 2.5 mg PO DAILY Qty: 15 1RF Rx Instructions: PER PT'S DAUGHTER "DON'T TAKE EVERY DAY, ONLY WHEN NEEDED". Take half tab daily atorvastatin [Lipitor] 40 mg tablet 40 mg PO QPM Qty: 90 1RF levothyroxine 125 mcg tablet 125 mcg PO DAILY Qty: 90 3RF (DME) ReliOn Prime Test Strips Strip See Rx Instructions .ROUTE .MEDSUPPLY Qty: 10 Rx Instructions: As directed aspirin 81 mg tablet,chewable 81 mg PO DAILY Qty: 30 2RF (DME) FreeStyle Kitty 2 [place] Misc See Rx Instructions .Route Rx Instructions: As directed potassium gluconate 600 mg (99 mg) tablet 600 mg PO DAILY echinacea 500 mg capsule 500 mg PO DAILY Rx Instructions: administer with meals vitamin B complex Capsule 1 cap PO DAILY (DME) lancets [BD Ultra Fine Lancets] 33 gauge misc See Rx Instructions .ROUTE .MEDSUPPLY Qty: 100 Rx Instructions: As directed cinnamon bark [Cinnamon] 500 mg Capsule 500 mg PO DAILY Centrum Silver 0.4-300-250 mg-mcg-mcg Tablet 1 tab PO DAILY metformin 500 mg tablet extended release 24 hr 500 mg PO BID insulin lispro [Humalog KwikPen Insulin] 100 unit/mL insulin pen See Rx Instructions .ROUTE .COMPLEX Rx Instructions: TAKES 14 UNITS W/BREAKFAST, 8 UNITS W/LUNCH, & 7 UNITS W/SUPPER Changed insulin glargine [Basaglar KwikPen U-100 Insulin] 100 unit/mL (3 mL) insulin pen 12 unit subcut QAM 90 Days Qty: 15.3 3RF Discontinued nitrofurantoin monohyd/m-cryst [Macrobid] 100 mg capsule 100 mg PO BID 5 Days Qty: 10 0RF Rx Instructions: STARTED 02/29/24 FOR 5 DAYS. must administer with a meal/food Discharge Orders: Discharge Order (Routine); Ordered 03/05/24 Ordered By: Clary De La Cruz/Other Patient Handouts: Managing Type 2 Diabetes Admission Data Admit Date/Time: 03/04/24 15:21 Attending Provider: Clary Ely Admit Provider: Katerina De La Vega Primary Care Provider: Elana Esposito V. Other Providers: Katerina De La Vega Other Interventions: Discharge Summary Assessment (RN) Last Done: 03/05/24 11:30 Coding Level of Care Code 30865 INP/OBS DISCH >30 MIN Diagnoses UTI (urinary tract infection) N39.0 Gait difficulty R26.9 Dyslipidemia E78.5 Hypertension I10 Hypothyroidism E03.9 Uncontrolled type 2 diabetes mellitus, with long-term current use of insulin E11.65; Z79.4
== END 2024-03-05 13:26 | disposition home or self-care (01) | DRG 872 ==
LOC: ED 12:18 → 3E 12:18 → SUATTDRO 14:45 → 3E 17:51